=== PATIENT | female | born 1935 | race Caucasian/White ===

== ENCOUNTER 2025-03-22 07:58 | Inpatient (IN) | payer MEDICARE, BC ==
[~2025-03-22] VITALS: Ht 165.1 cm; Wt 78.3 kg
[2025-03-22] MEDS: ONDANSETRON 4MG 2ML VIAL IV ONE (08:59)
[2025-03-22] MEDS: MORPHINE 2 MG/ML 1 ML VIAL IV PRN (09:00)
[2025-03-22] MEDS: NS (Normal Saline) 0.9% 1,000 ML IV SCH (09:00)
[2025-03-22] MEDS ORDERED: ISOVUE-370 76% 100 ML VIAL As Ordered ONE (09:01)
[2025-03-22 09:20] LABS: BASO # 0.0 10^3/uL (0.0-0.2); BASO % 0.1 % (0.0-1.0); EOS # 0.0 10^3/uL (0.0-0.5); EOS % 0.1 % (0.0-3.0); LYMPH # 1.2 10^3/uL (1.5-5.0); LYMPH % 8.0 % (24.0-44.0); MONO # 1.3 10^3/uL (0.0-0.8); MONO % 8.4 % (2.0-8.0); NEUTROPHILS # 12.6 10^3/uL (1.5-8.5); NEUTROPHILS % 82.9 % (36.0-66.0); PLATELET COUNT, AUTOMATED 271 10^3/uL (150-450)
[2025-03-22 09:32] LABS: ALT/SGPT 23.0 U/L (7.0-40); AST/SGOT 28.0 U/L (<34); CALCIUM LEVEL 10.4 MG/DL (8.3-10.6); CARBON DIOXIDE LEVEL 30.0 MMOL/L (20-31); CHLORIDE LEVEL 98.0 MMOL/L (98-107); CREATININE FOR GFR 1.09 MG/DL (0.55-1.30); GLOMERULAR FILTRATION RATE 48.9 (>32); POTASSIUM SERUM 4.1 MMOL/L (3.5-5.1); SODIUM LEVEL 142.0 MMOL/L (136-145)
[2025-03-22] MEDS ORDERED: PRES10CA2 PO (10:11)
[2025-03-22] MEDS ORDERED: METO1TAB33 PO (10:11)
[2025-03-22] MEDS ORDERED: FLUT15.820 NARES (10:12)
[2025-03-22] MEDS ORDERED: VENTAER INH (10:12)
[2025-03-22] MEDS ORDERED: HOME MED LIST COMPLETE! XX SCH (10:15)
[2025-03-22] MEDS: PANTOPRAZOLE 40MG VIAL IV ONE ×2 (10:31→15:14)
[2025-03-22] MEDS ORDERED: ALBUTEROL 90 MCG/ACT 8 GM HFA INHALER INH PRN (11:25)
[2025-03-22] MEDS: LR 1,000 ML IV ONE (11:45)
[2025-03-22 12:36] VITALS: BP 137/72; TEMP 97; O2SAT 96
[2025-03-22] MEDS: D5W/0.45% SODIUM CHLORIDE 1,000 ML IV SCH (13:50)
[2025-03-22] MEDS: HYDROMORPHONE HCL 0.5 MG/0.5 ML SYRINGE IV ONE (15:14)
[2025-03-22] MEDS: ONDANSETRON 4MG 2ML VIAL IV PRN (15:24)
[2025-03-22 16:00] VITALS: BP 135/74; TEMP 97.4; O2SAT 94
[2025-03-22 20:08] VITALS: BP_SYST 133; BP_DIAS 65; BP_DIAS 68; TEMP 97.2; O2SAT 92
[2025-03-22] MEDS: METOPROLOL SUCC. 100 MG *XL* TAB PO SCH (21:00)
[2025-03-22] MEDS: ACETAMINOPHEN 325 MG TAB PO PRN (22:29)
[2025-03-22 23:01] VITALS: BP 100/53; TEMP 97; O2SAT 93
[2025-03-23 03:04] VITALS: BP 116/58; TEMP 97.3; O2SAT 90
[2025-03-23 05:20] LABS: PLATELET COUNT, AUTOMATED 213 10^3/uL (150-450)
[2025-03-23 06:04] LABS: CALCIUM LEVEL 8.3 MG/DL (8.3-10.6); CARBON DIOXIDE LEVEL 28.0 MMOL/L (20-31); CHLORIDE LEVEL 104.0 MMOL/L (98-107); CREATININE FOR GFR 1.08 MG/DL (0.55-1.30); GLOMERULAR FILTRATION RATE 49.4 (>32); MAGNESIUM LEVEL 1.9 MG/DL (1.8-2.4); POTASSIUM SERUM 3.9 MMOL/L (3.5-5.1); SODIUM LEVEL 142.0 MMOL/L (136-145)
[2025-03-23 07:14] LABS: KETONE, URINE AUTO RFX NEGATIVE (NEGATIVE); LEUKOCYTE ESTERASE UR AUTO RFX NEGATIVE (NEGATIVE); MUCUS, URINE RFX SMALL (NEGATIVE); NITRITE, URINE AUTO RFX NEGATIVE (NEGATIVE); RBC, URINE AUTO RFX 0 /HPF (0-3); SQUAM EPITHELIAL CELL UR AURFX 1 /HPF (0-6); WBC, URINE AUTO RFX 3 /HPF (0-3)
[2025-03-23 08:00] VITALS: BP 108/59; TEMP 97.1; O2SAT 94
[2025-03-23] MEDS: PANTOPRAZOLE 40MG VIAL IV SCH (10:54)
[2025-03-23] MEDS: LR 1,000 ML IV ONE (10:54)
[2025-03-23] MEDS: hydrALAZINE 20 MG/ML 1 ML VIAL IV SCH (12:00)
[2025-03-23 12:15] VITALS: BP 113/56; TEMP 97.3; O2SAT 9; O2SAT 91
[2025-03-23] MEDS: D5W/0.45% SODIUM CHLORIDE 1,000 ML IV SCH (12:35)
[2025-03-23] MEDS: MIRALAX *UNIT DOSE* 17 GM PACKET PO ONE (12:57)
[2025-03-23 16:17] VITALS: BP 109/55; TEMP 97.4; O2SAT 93
[2025-03-23 19:19] VITALS: BP 105/53; TEMP 97.9; O2SAT 93
[2025-03-23] MEDS: ACETAMINOPHEN *IV* 500 MG in IV 1 EA IV ONE (21:29)
[2025-03-23 22:58] VITALS: BP 104/52; TEMP 97.2; O2SAT 92
[2025-03-24] MEDS: CHLORASEPTIC SPRAY MT PRN (02:34)
[2025-03-24 03:01] VITALS: BP 121/59; TEMP 97.5; O2SAT 92
[2025-03-24 05:48] LABS: PLATELET COUNT, AUTOMATED 189 10^3/uL (150-450)
[2025-03-24 06:21] LABS: CALCIUM LEVEL 7.6 MG/DL (8.3-10.6); CARBON DIOXIDE LEVEL 28.0 MMOL/L (20-31); CHLORIDE LEVEL 107.0 MMOL/L (98-107); CREATININE FOR GFR 1.04 MG/DL (0.55-1.30); GLOMERULAR FILTRATION RATE 51.7 (>32); MAGNESIUM LEVEL 1.7 MG/DL (1.8-2.4); POTASSIUM SERUM 4.2 MMOL/L (3.5-5.1); SODIUM LEVEL 145.0 MMOL/L (136-145)
[2025-03-24 07:17] VITALS: BP 139/67; TEMP 98; O2SAT 92
[2025-03-24] MEDS: MIRALAX *UNIT DOSE* 17 GM PACKET PO SCH (11:04)
[2025-03-24] MEDS: BISACODYL 10 MG SUPP PR ONE (11:05)
[2025-03-24 12:04] VITALS: BP 131/60; TEMP 97.8; O2SAT 97
[2025-03-24 15:43] VITALS: BP 148/72; TEMP 98.9; O2SAT 95
[2025-03-24 20:00] VITALS: BP 134/71; TEMP 97.4; O2SAT 96
[2025-03-24] MEDS: ACETAMINOPHEN 325 MG TAB PO PRN (22:07)
[2025-03-24] MEDS: RAMELTEON 8 MG TAB PO ONE (22:07)
[2025-03-25] VITALS (8 sets, daily range): BP systolic 105–153; BP diastolic 56–74; TEMP 96.3–97.6; O2SAT 91–97
[2025-03-25 05:13] LABS: PLATELET COUNT, AUTOMATED 198 10^3/uL (150-450)
[2025-03-25 05:40] LABS: CALCIUM LEVEL 7.5 MG/DL (8.3-10.6); CARBON DIOXIDE LEVEL 27.0 MMOL/L (20-31); CHLORIDE LEVEL 108.0 MMOL/L (98-107); CREATININE FOR GFR 0.95 MG/DL (0.55-1.30); GLOMERULAR FILTRATION RATE 57.6 (>32); MAGNESIUM LEVEL 1.7 MG/DL (1.8-2.4); POTASSIUM SERUM 3.6 MMOL/L (3.5-5.1); SODIUM LEVEL 145.0 MMOL/L (136-145)
[2025-03-25] MEDS: MAG SULF 1GM/100ML (MAG RUN) 1 GM in IV 1 EA IV ONE (10:01)
[2025-03-25] MEDS: **hydrALAZINE HCL** 25 MG TAB PO SCH (12:00)
[2025-03-25] MEDS: ACETAMINOPHEN 325 MG TAB PO ONE (20:38)
[2025-03-25] MEDS: RAMELTEON 8 MG TAB PO ONE (20:38)
[2025-03-26 04:08] VITALS: BP 132/65; TEMP 97.6; O2SAT 91
[2025-03-26 05:30] LABS: PLATELET COUNT, AUTOMATED 208 10^3/uL (150-450)
[2025-03-26 05:56] LABS: CALCIUM LEVEL 8.1 MG/DL (8.3-10.6); CARBON DIOXIDE LEVEL 27.0 MMOL/L (20-31); CHLORIDE LEVEL 107.0 MMOL/L (98-107); CREATININE FOR GFR 0.97 MG/DL (0.55-1.30); GLOMERULAR FILTRATION RATE 56.2 (>32); MAGNESIUM LEVEL 1.9 MG/DL (1.8-2.4); POTASSIUM SERUM 3.6 MMOL/L (3.5-5.1); SODIUM LEVEL 143.0 MMOL/L (136-145)
[2025-03-26 07:46] VITALS: BP_SYST 135; BP_DIAS 68; BP_DIAS 8; TEMP 97.6; O2SAT 94
[2025-03-26] MEDS ORDERED: MM S100C PO (10:51)
[2025-03-26 11:48] VITALS: BP 107/57; O2SAT 96
[2025-03-26 11:49] VITALS: BP 107/57
[2025-03-26 11:58] VITALS: TEMP 97.8
== END 2025-03-26 14:49 | disposition home or self-care (01) | DRG 389 ==
LOC: M ED 07:58 → M ED INP 11:03 → M PCU 12:16
PROVIDERS: ADMIT General Practice; ATTEND General Practice
PROC: B246ZZZ Ultrasonography of Right and Left Heart (ICD-10-PCS; principal; 2025-03-22)
DX: K56.609 Unspecified intestinal obstruction, unspecified as to partial versus complete obstruction (principal); J98.11 Atelectasis; E87.20 Acidosis, unspecified; I10 Essential (primary) hypertension; K44.9 Diaphragmatic hernia without obstruction or gangrene; E83.42 Hypomagnesemia; K20.90 Esophagitis, unspecified without bleeding; E86.0 Dehydration; Z79.899 Other long term (current) drug therapy; Z88.0 Allergy status to penicillin; Z88.2 Allergy status to sulfonamides; Z91.048 Other nonmedicinal substance allergy status; Z88.8 Allergy status to other drugs, medicaments and biological substances; Z90.49 Acquired absence of other specified parts of digestive tract